=== PATIENT | female | born 2000 | race Caucasian/White ===

== ENCOUNTER 2021-02-24 10:39 | Emergency (ER) | payer BC ==
[~2021-02-24] VITALS: Ht 167.6 cm; Wt 79.4 kg
[2021-02-24 10:48] VITALS: BP_SYST 124
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
--- NOTE | 2021-02-24 11:17 | NUR ---
DR MACDONALD IN TO ASSESS
--- NOTE | 2021-02-24 11:18 | NUR ---
PERRL. STEADY GAIT. CLEAR MENTATION. DENIES N/V. ALERT, CALM, RESP UNLABORED, SKIN WARM AND DRY. COMMUNICATES CLEARLY DENIES CP/SOB
[2021-02-24] MEDS ORDERED: TRAM50TA PO (11:23)
[2021-02-24] MEDS ORDERED: NAPR-688 PO (11:23)
--- NOTE | 2021-02-24 11:30 | NUR ---
Patient given written and verbal discharge instructions and verbalizes understanding. ER MD discussed with patient the results and treatment provided. Patient in stable condition. ID arm band removed. Rx per Dr. Rose. Patient educated on pain management and to follow up with PMD. Pain Scale 0/10.Opportunity for questions provided and answered. Medication side effect fact sheet provided.
[2021-02-24 11:32] VITALS: BP_SYST 121
== END 2021-02-24 11:32 | disposition home or self-care (01) ==
LOC: SED 10:39
DX: S09.90XA Unspecified injury of head, initial encounter (principal); W22.8XXA Striking against or struck by other objects, initial encounter; Z79.899 Other long term (current) drug therapy; Y93.89 Activity, other specified; Y92.89 Other specified places as the place of occurrence of the external cause; Y99.8 Other external cause status
CPT/HCPCS: 99283